=== PATIENT | female | born 1995 | race Caucasian/White ===

== ENCOUNTER 2021-06-15 09:17 | Day surgery (SDC) | payer MEDICAID, OTHER ==
[2021-06-15] MEDS ORDERED: Sodium Chloride 0.9% 1,000 ML IV SCH (10:00)
[2021-06-15] MEDS ORDERED: Propofol 200 MG/20 ML SDV ONE ×2 (10:26→11:10)
[2021-06-15] MEDS ORDERED: Midazolam 1 MG/ML 2 ML SDV ONE (10:26)
[2021-06-15] MEDS ORDERED: fentaNYL 100 MCG/2 ML SDV ONE (10:26)
[2021-06-15] MEDS ORDERED: Bupivacaine 0.5% 50 ML MDV ONE (11:16)
[2021-06-15] MEDS ORDERED: Lidocaine 1% with EPINEPHrine 1:100,000 50 ML MDV ONE (11:16)
[2021-06-15] MEDS ORDERED: Lidocaine 2% Jelly 30 ML Tube ONE (11:31)
[2021-06-15 12:42] VITALS: BP 111/73; PULSE 61
--- NOTE | 2021-06-16 08:30 | OR ---
DATE OF PROCEDURE: 06/15/2021 SURGEON: Kenroy Nelson MD PROCEDURES: 1. Excision of external hemorrhoid. 2. Endoscopic banding, internal hemorrhoid. COMPLICATIONS: None. MANAGER INFRASTRUCTURE: None. ANESTHESIA: MAC. PREOPERATIVE DIAGNOSIS: Painful rectal hemorrhoids with bleeding, protruding internal hemorrhoids. POSTOPERATIVE DIAGNOSIS: Painful rectal hemorrhoids with bleeding, protruding internal hemorrhoids. RISKS: Risks, benefits, alternatives, and limitations including, but not limited to infection, bleeding, chronic wounds, chronic pain, fistula, and other risks not listed here were explained to the patient and she wished to proceed. PROCEDURE IN DETAIL: The patient was placed in prone angelica-knife position. The internal hemorrhoids were banded x1 with endoscopic banding. The external hemorrhoid was excised in a debby-type fashion using lidocaine with epinephrine, 15 blade, and electrocautery. This was then chromic suture in a running fashion. Lidocaine with epinephrine gel was also used. The patient tolerated the procedure well. Kenroy Nelson MD /[id number]
== END 2021-06-15 12:45 | disposition home or self-care (01) ==
LOC: JP.SDS 09:17
PROVIDERS: ATTEND Surgery
DX: K64.8 Other hemorrhoids (principal); K64.4 Residual hemorrhoidal skin tags
CPT/HCPCS: 46221; 46999; 81025; J2250; J2704; J3010; J3490; J7030